=== PATIENT | female | born 1995 | race Two or more races ===

== ENCOUNTER 2019-06-05 18:41 | Emergency (ER) | payer OTHER ==
[~2019-06-05] VITALS: Ht 157.5 cm; Wt 56.7 kg
[2019-06-05] MEDS ORDERED: IBUPROFEN 400 MG TABLET ONE (19:15)
--- NOTE | 2019-06-05 19:22 | NUR ---
bibfriend, c/o chest pain radiating to left upper back, 02/26 ps. PT AAOX4, VSS. DENIES SOB, DIZZINESS, N/V, ARM/JAW PAIN @ THIS TIME. PT SEEN & EVAL'D BY EFRAIN DOMINGUEZ. PLACED ON ACTIVITIES THERAPIST, SR. WILL CONT TO MONITOR.
[2019-06-05 19:25] LABS: BASOPHILS % (AUTO) 0.4 % (0.0-2.0); EOSINOPHILS % (AUTO) 0.9 % (0.0-6.0); HEMATOCRIT 38 % (33-45); HEMOGLOBIN 12.7 g/dL (11.5-14.8); LYMPHOCYTES # (AUTO) 1.6 /CMM (0.8-4.8); MEAN CORPUSCULAR HGB CONC 34 g/dl (31.0-36.0); MEAN CORPUSCULAR VOLUME 83 fL (82-100); MONOCYTES # (AUTO) 0.6 /CMM (0.1-1.30); MONOCYTES % (AUTO) 10.8 % (2.0-12.0); NEUTROPHILS # (AUTO) 2.9 /CMM (1.8-8.9); NEUTROPHILS % (AUTO) 56.9 % (43.0-81.0); PLATELET COUNT (AUTO) 207 /CMM (150-450); RED BLOOD CELL COUNT(AUTO) 4.55 MIL/uL (4.0-5.2); WHITE BLOOD COUNT (AUTO) 5.2 K/uL (4.3-11.0)
[2019-06-05] MEDS ORDERED: IBUPROFEN 400 MG TABLET PO ONE (19:30)
[2019-06-05 19:47] LABS: CALCIUM, SERUM 8.8 mg/dL (8.5-10.1); CARBON DIOXIDE 28 mmol/L (21-32); CHLORIDE 104 mmol/L (98-107); CREATININE 0.5 mg/dL (0.6-1.3); GLUCOSE 109 mg/dL (74-106); POTASSIUM 3.7 mmol/L (3.5-5.1); SODIUM SERUM 138 mmol/L (136-145); UREA NITROGEN, BLOOD 9 mg/dL (7-18)
--- NOTE | 2019-06-05 20:50 | NUR ---
Patient discharged to home in stable condition. Written and verbal after care instructions given. Patient verbalizes understanding of instruction.
[2019-06-05 20:55] VITALS: BP 110/72
== END 2019-06-05 20:56 | disposition home or self-care (01) ==
LOC: ER 18:44
DX: R07.89 Other chest pain (principal)
CPT/HCPCS: 36415; 80048-TC; 84484-TC; 85025-TC